=== PATIENT | female | born 1965 | race Caucasian/White ===

== ENCOUNTER 2023-01-13 19:21 | Emergency (ER) | payer OTHER, SELFPAY ==
[2023-01-13] VITALS (8 sets, daily range): BP systolic 105–134; BP diastolic 75–92; PULSE 67–77; RESP 16–18; TEMP 36.5; O2SAT 91–95; BMI 19.9
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
[2023-01-13] MEDS: ondansetron 2 mg/ML SDV 2 mL 4 MG IVP (20:13)
[2023-01-13] MEDS: morphine 4 mg/mL SDV 1 mL 2 MG IVP (20:15)
[2023-01-13 20:23] LABS: Basophils # 0.1 10^3/uL (0.0-0.1); Basophils % 0.8 %; Eosinophils # 0.1 10^3/uL (0.0-0.8); Eosinophils % 0.8 %; Lymphocytes # 1.3 10^3/uL (0.8-4.8); Lymphocytes % 11.7 %; Mean Corpuscular HGB Conc 32.1 g/dL (30-55); Mean Corpuscular Hemoglobin 29.6 pg (27-33); Mean Corpuscular Volume 92.2 fl (85-98); Mean Platelet Volume 9.5 fL (7.4-10.4); Monocytes # 0.5 10^3/uL (0.2-0.9); Monocytes % 4.1 %; Neutrophils # 9.07 10^3/uL (1.8-7.7); Neutrophils % 81.9 %; Nucleated Red Blood Cells % 0 %; Platelet Count 238 10^3/cmm (157-399); Red Blood Count 4.12 10^6/uL (3.85-5.65); Red Cell Distribution Width 13.2 % (12.1-15.1); White Blood Count 11.09 10^3/uL (3.29-11.43)
[2023-01-13 20:44] LABS: INR 1.05 (0.8-1.2)
[2023-01-13 20:48] LABS: Alanine Aminotransferase 10 U/L (0-33); Albumin Level 4.4 g/dL (3.5-5.2); Alcohol Level 185 mg/dL (0-10); Alkaline Phosphatase 80 U/L (35-105); Anion Gap 11.9 (5-19); Aspartate Amino Transferase 20 U/L (0-32); Blood Urea Nitrogen 8 mg/dL (6-20); Calcium 8.8 mg/dL (8.5-10.5); Carbon Dioxide 28 mmol/L (22-29); Chloride 104 mmol/L (98-107); Globulin 2.4 g/dL (1.3-4.6); Glomerular Filtration Rate 73.9 mL/min (90-130); Glucose 109 mg/dL (65-115); Osmolality Calculated 289 mOsm/kg (285-295); Potassium 3.9 mmol/L (3.5-5.1); Sodium 140 mmol/L (136-145); Total Bilirubin 0.2 mg/dL (0.15-1.2); Total Protein 6.8 g/dL (6.6-8.7)
[2023-01-13] MEDS: morphine 4 mg/mL SDV 1 mL IVP (21:24)
== END 2023-01-13 22:32 | disposition short-term general hospital (02) ==
PROVIDERS: Emergency Provider Emergency Medicine
DX: S27.0XXA Traumatic pneumothorax, initial encounter (principal); S22.5XXA Flail chest, initial encounter for closed fracture; S22.41XA Multiple fractures of ribs, right side, initial encounter for closed fracture; S42.001A Fracture of unspecified part of right clavicle, initial encounter for closed fracture; V86.99XA Unspecified occupant of other special all-terrain or other off-road motor vehicle injured in nontraffic accident, initial encounter
CPT/HCPCS: 36415; 70450; 71250; 72125; 73200; 80053; 80307; 85025; 85610; 96374; 96375; 96376; 99285; J2270; J2405